=== PATIENT | male | born 2000 | race Caucasian/White ===

== ENCOUNTER 2022-08-28 19:02 | Emergency (ER) | payer BC, OTHER ==
[2022-08-28] MEDS ORDERED: Lidocaine 1% (PF) 30 ML VIAL ONE (19:34)
[2022-08-28] MEDS ORDERED: Boostrix 0.5 ML (Tdap) VIAL (>/=7 yrs of age) ONE (19:35)
[2022-08-28] MEDS ORDERED: Bacitracin 1 PK ONE (20:51)
== END 2022-08-28 21:00 | disposition home or self-care (01) ==
LOC: BURERS 19:02
DX: S61.211A Laceration without foreign body of left index finger without damage to nail, initial encounter (principal); Z23 Encounter for immunization; W26.0XXA Contact with knife, initial encounter
CPT/HCPCS: 12001; 90471; 90715; J2001